=== PATIENT | male | born 1970 | race Caucasian/White ===

== ENCOUNTER 2020-03-29 10:34 | Observation (INO) | payer OTHER ==
[2020-03-29] MEDS ORDERED: MORPHINE SULFATE 4 MG/ML SYRINGE IVP STA (10:53)
[2020-03-29] MEDS ORDERED: SODIUM CHLORIDE 0.9% 1,000 ML IV ONE (11:02)
[2020-03-29 11:50] LABS: Basophils % (A) 0 %; Eosinophils # (A) 0.5 k/uL (0-0.7); Eosinophils % (A) 4 %; HCT 42.3 % (39.0-53.0); HGB 13.7 gm/dL (13.0-17.5); Lymphocytes # (A) 1.8 k/uL (1.0-4.8); Lymphocytes % (A) 13 %; MCHC 32.4 g/dL (31.0-37.0); MCV 86.5 fL (80.0-100.0); Mean Platelet Volume 7.9; Monocytes # (A) 0.8 k/uL (0-1.0); Monocytes % (A) 6 %; Neutrophils # (A) 10.1 k/uL (1.3-7.7); Neutrophils % (A) 76 %; Platelet Count 289 k/uL (150-450); RBC 4.89 m/uL (4.30-5.90); RDW 12.8 % (11.5-15.5); WBC 13.4 k/uL (3.8-10.6)
[2020-03-29] MEDS: SODIUM CHLORIDE 0.9% 1,000 ML IV SCH ×2 (11:54→23:19)
--- NOTE | 2020-03-29 11:59 | ED ---
Extremity Problem HPI - General Chief complaint: Extremity Problem,Nontraumatic Stated complaint: Back pain Time Seen by Provider: 03/29/20 10:46 Source: patient, RN notes reviewed, old records reviewed Mode of arrival: ambulatory Limitations: no limitations - History of Present Illness Initial comments: Patient is a 49-year-old male who presents the ER today from Dr. Mercado since his back specialist office for requesting a CT and MRI. Patient has had lumbar radiculopathy symptoms of sciatic distribution of pain. Patient complains of numbness to the dorsal aspect of his left foot. Patient reports that he's had no specific fall or trauma but does heavy lifting. He isn't having the symptoms for the past 2 days. - Related Data Allergies Allergy/AdvReac Type Severity Reaction Status Date / Time No Known Allergies Allergy Verified 03/29/20 10:39 Review of Systems ROS Statement: Those systems with pertinent positive or pertinent negative responses have been documented in the HPI. ROS Other: All systems not noted in ROS Statement are negative. Past Medical History Past Medical History: No Reported History Past Surgical History: Orthopedic Surgery Additional Past Surgical History / Comment(s): head sx. left knee Smoking Status: Former smoker Past Alcohol Use History: Rare Past Drug Use History: None Reported General Exam - General Exam Comments Initial Comments: 49-year-old male. Limitations: no limitations General appearance: alert, in no apparent distress Head exam: Present: atraumatic, normocephalic, normal inspection Eye exam: Present: normal appearance, PERRL, EOMI. Absent: scleral icterus, conjunctival injection, periorbital swelling ENT exam: Present: normal exam, mucous membranes moist Neck exam: Present: normal inspection. Absent: tenderness, meningismus, lymphadenopathy Respiratory exam: Present: normal lung sounds bilaterally. Absent: respiratory distress, wheezes, rales, rhonchi, stridor Cardiovascular Exam: Present: regular rate, normal rhythm, normal heart sounds. Absent: systolic murmur, diastolic murmur, rubs, gallop, clicks GI/Abdominal exam: Present: soft, normal bowel sounds. Absent: distended, tenderness, guarding, rebound, rigid Back exam: Present: normal inspection Neurological exam: Present: alert, oriented X3, CN II-XII intact Psychiatric exam: Present: normal affect, normal mood Skin exam: Present: warm, dry, intact, normal color. Absent: rash Course Vital Signs 03/29/20 10:40 Temperature 98.5 F Pulse Rate 99 Respiratory 16 Rate Blood Pressure 151/93 O2 Sat by Pulse 97 Oximetry Medical Decision Making - Medical Decision Making 49-year-old male presents with 2 weeks of lower back pain. With radicular symptoms on the left leg. He complains of diminished sensation left foot. He also mentioned that he had an episode of brief or bowel incontinence and mentioned this to his back surgeon. He is sent to the ER for evaluation. Able to obtain an MRI which shows some thecal sac compression of L5-S1 with some examination patient's radiculopathy symptoms. With a concern for an episode of bowel incontinence Patient case was discussed with Dr. Small and he wants to have a postvoid residual measured by cath. The plans to do surgery tomorrow. Patient will have consult to medicine for surgery clearance. Basic labs and EKG obtained. - Lab Data Result diagrams: 03/29/20 11:05 03/29/20 11:05 Lab Results 03/29/20 03/29/20 03/29/20 Range/Units 11:05 11:05 11:05 WBC 13.4 H (3.8-10.6) k/uL RBC 4.89 (4.30-5.90) m/uL Hgb 13.7 (13.0-17.5) gm/dL Hct 42.3 (39.0-53.0) % MCV 86.5 (80.0-100.0) fL MCH 28.0 (25.0-35.0) pg MCHC 32.4 (31.0-37.0) g/dL RDW 12.8 (11.5-15.5) % Plt Count 289 (150-450) k/uL Neutrophils % 76 % Lymphocytes % 13 % Monocytes % 6 % Eosinophils % 4 % Basophils % 0 % Neutrophils # 10.1 H (1.3-7.7) k/uL Lymphocytes # 1.8 (1.0-4.8) k/uL Monocytes # 0.8 (0-1.0) k/uL Eosinophils # 0.5 (0-0.7) k/uL Basophils # 0.0 (0-0.2) k/uL PT 9.7 (9.0-12.0) sec INR 0.9 (<1.2) APTT 23.1 (22.0-30.0) sec Sodium 136 L (137-145) mmol/L Potassium 4.3 (3.5-5.1) mmol/L Chloride 105 (98-107) mmol/L Carbon Dioxide 24 (22-30) mmol/L Anion Gap 7 mmol/L BUN 21 H (9-20) mg/dL Creatinine 1.31 H (0.66-1.25) mg/dL Est GFR (CKD-EPI)AfAm 75 (>60 ml/min/1.73 sqM) Est GFR (CKD-EPI)NonAf 65 (>60 ml/min/1.73 sqM) Glucose 195 H (74-99) mg/dL Calcium 9.0 (8.4-10.2) mg/dL Urine Color Urine Appearance (Clear) Urine pH (5.0-8.0) Ur Specific [place] (1.001-1.035) Urine Protein (Negative) Urine Glucose (UA) (Negative) Urine Ketones (Negative) Urine Blood (Negative) Urine Nitrite (Negative) Urine Bilirubin (Negative) Urine Urobilinogen (<2.0) mg/dL Ur Leukocyte Esterase (Negative) 03/29/20 Range/Units 11:55 WBC (3.8-10.6) k/uL RBC (4.30-5.90) m/uL Hgb (13.0-17.5) gm/dL Hct (39.0-53.0) % MCV (80.0-100.0) fL MCH (25.0-35.0) pg MCHC (31.0-37.0) g/dL RDW (11.5-15.5) % Plt Count (150-450) k/uL Neutrophils % % Lymphocytes % % Monocytes % % Eosinophils % % Basophils % % Neutrophils # (1.3-7.7) k/uL Lymphocytes # (1.0-4.8) k/uL Monocytes # (0-1.0) k/uL Eosinophils # (0-0.7) k/uL Basophils # (0-0.2) k/uL PT (9.0-12.0) sec INR (<1.2) APTT (22.0-30.0) sec Sodium (137-145) mmol/L Potassium (3.5-5.1) mmol/L Chloride (98-107) mmol/L Carbon Dioxide (22-30) mmol/L Anion Gap mmol/L BUN (9-20) mg/dL Creatinine (0.66-1.25) mg/dL Est GFR (CKD-EPI)AfAm (>60 ml/min/1.73 sqM) Est GFR (CKD-EPI)NonAf (>60 ml/min/1.73 sqM) Glucose (74-99) mg/dL Calcium (8.4-10.2) mg/dL Urine Color Yellow Urine Appearance Clear (Clear) Urine pH 5.5 (5.0-8.0) Ur Specific [place] 1.027 (1.001-1.035) Urine Protein Trace H (Negative) Urine Glucose (UA) Trace H (Negative) Urine Ketones Negative (Negative) Urine Blood Negative (Negative) Urine Nitrite Negative (Negative) Urine Bilirubin Negative (Negative) Urine Urobilinogen <2.0 (<2.0) mg/dL Ur Leukocyte Esterase Negative (Negative) - Radiology Data Radiology results: report reviewed Severe right foraminal narrowing at L5-S1. Large left paracentral disc herniation with moderate anterior thecal sac impression left L5 nerve root compression. Correlate with radicular symptoms. Mild central disc herniation L3-L4 and L5-S1 with mild anterior thecal sac contacts. CT shows right [place] inal narrowing at L5-S1. Paracentral disc herniation with moderate to thecal sac compression of L5. Broad based disc bulge at L3-L4. Please see MRI Report on the same day. Disposition Clinical Impression: Lumbar radiculopathy, Intractable back pain Disposition: ADMITTED IP TO THIS HOSP Condition: Good Is patient prescribed a controlled substance at d/c from ED?: No Referrals: Molly Dupont MD [Primary Care Provider] - 1-2 days Time of Disposition: 14:27
[2020-03-29 12:01] LABS: INR 0.9 (<1.2); Partial Thromboplastin Time 23.1 sec (22.0-30.0); Prothrombin Time 9.7 sec (9.0-12.0)
[2020-03-29 12:19] LABS: Potassium 4.3 mmol/L (3.5-5.1)
[2020-03-29 12:27] LABS: Appearance,Urine Clear (Clear); Bilirubin,Urine Negative (Negative); Blood,Urine Negative (Negative); Color,Urine Yellow; Glucose,Urine (UA) Trace (Negative); Ketones,Urine Negative (Negative); Leukocyte Esterase,Urine Negative (Negative); Nitrite,Urine Negative (Negative); PH, Urine 5.5 (5.0-8.0); Protein,Urine Trace (Negative); Specific Gravity,Urine 1.027 (1.001-1.035); Urobilinogen,Urine <2.0 mg/dL (<2.0)
--- NOTE | 2020-03-29 13:30 | MR ---
EXAMINATION TYPE: MR lumbar spine wo con DATE OF EXAM: 03/29/2020 COMPARISON: CT lumbar spine 03/29/2020 HISTORY: Radiculopathy, back pain radiating down right leg CONTRAST: 0 mL intravenous Gadavist. TECHNIQUE: Multiplanar, multisequence images of the lumbar spine were acquired. FINDINGS: L5-S1: Central disc protrusion is present with mild anterior thecal sac compression. No exiting nerve root contact or displacement is evident. Severe right foraminal stenosis is present. L4-L5: There is a large left paracentral disc herniation. There is moderate anterior thecal sac compr ession. Posterior left L5 nerve root displacement and compression is evident. Correlate with the radi cular symptoms. L3-L4: Mild broad-based disc bulge is present with anterior thecal sac contact. No spinal canal steno sis or neural foraminal stenosis is present. L2-L3: No significant disc bulge or disc herniation. No spinal canal stenosis. No foraminal stenosi s. . L1-L2: No significant disc bulge or disc herniation. No spinal canal stenosis. No foraminal stenosi s. . T12-L1: No significant disc bulge or disc herniation. No spinal canal stenosis. No foraminal stenos is. . IMPRESSION: 1. Severe right foraminal narrowing L5-S1. 2. Large left paracentral disc herniation with moderate anterior thecal sac compression and left L5 n erve root compression. Correlate with the radicular symptoms. 3. Mild central disc bulging L3-4 and L5-S1 with mild anterior thecal sac contact.
--- NOTE | 2020-03-29 13:35 | CT ---
EXAMINATION TYPE: CT lumbar spine wo con DATE OF EXAM: 03/29/2020 COMPARISON: HISTORY: Back pain, radiculopathy CT DLP: 2343.6 mGycm CONTRAST: None TECHNIQUE: CT of the lumbar spine is performed on a spiral scan at 3 mm thick sections . Reconstructed images are performed in the coronal and sagittal planes. FINDINGS: T12-L1: No focal disc herniation or significant disc bulge is evident. No spinal canal stenosis or neural foraminal stenosis is present. L1-L2: No focal disc herniation or significant disc bulge is evident. No spinal canal stenosis or n eural foraminal stenosis is present L2-L3: No focal disc herniation or significant disc bulge is evident. No spinal canal stenosis or n eural foraminal stenosis is present L3-L4: Broad-based disc bulge is present. This has moderate anterior thecal sac compression. No AP sp inal canal stenosis is present. On these images and may be slightly greater to the right than the lef t. L4-L5: Left paracentral disc herniation with moderate anterior thecal sac compression. Correlate with left L5 radicular symptoms. L5-S1: Asymmetric disc bulging into the right foramen is present. No suspicious AP spinal canal steno sis present. Vertebral alignment appears normal. IMPRESSION: 1. Right foraminal narrowing L5-S1. 2. Left paracentral disc herniation with moderate anterior thecal sac compression L4-5. 3. Broad-based disc bulge L3-4. 4. Please also see MRI lumbar spine report same date
[2020-03-29] MEDS ORDERED: HYDROmorphone 1 MG/ML 1 ML SYRINGE IVP STA (14:26)
[2020-03-29] MEDS ORDERED: HYDROmorphone 1 MG/ML 1 ML SYRINGE IVP PRN (14:28)
[2020-03-29] MEDS ORDERED: NALOXONE 0.4 MG/ML 1 ML VIAL IV PRN (14:28)
[2020-03-29] MEDS ORDERED: ACETAMINOPHEN TAB 325 MG TAB PO PRN (14:28)
[2020-03-29] MEDS ORDERED: IBUPROFEN 400 MG TAB PO PRN (14:28)
[2020-03-29] MEDS ORDERED: ONDANSETRON 4 MG/2 ML VIAL IVP PRN (14:28)
--- NOTE | 2020-03-29 15:49 | P.HPOR ---
History of Present Illness H&P Date: 03/29/20 Chief Complaint: My LLE hurts, my back hurts and I had an issues with my bowels This 49 year old male presents with 1 1/2 weeks of low back pain. He notes pain on his left side that radiates down his left leg. He has weakness and night time symptoms. Patient has increased pain with weight bearing. He also has had 1 instance bowel incontinence. Patient takes [place] which she was prescribed from the emergency department dominant [facility]. The patient is visiting [facility] 2 different times for his low back pain and was referred here for evaluation. He has had no imaging as of yet of his low back. He states continued pain and radicular type symptoms on his left lower extremity. He states when he increases intra-abdominal pressure. He gets more weakness and numbness in his legs as well as had a bout of bowel incontinence when he was getting up out of the bathtub. He denies any fevers, chills shortness of breath or chest pain at this time. Does have a history of prediabetes. His sugars. He states from in the 120s. He does have a history of high blood pressure. He currently denies perineal numbness. Review of Systems 14 points review of systems completed and as stated in HPI or otherwise negative. Integumentary: Reports as per HPI Neurological: Reports motor disturbance, Reports paresthesias, Reports sensory deficit Past Medical History Past Medical History: No Reported History, Diabetes Mellitus, Hypertension Additional Past Medical History / Comment(s): Anxiety, depression Past Surgical History: Orthopedic Surgery Additional Past Surgical History / Comment(s): head sx. left knee Past Psychological History: Anxiety, Depression Smoking Status: Former smoker (States he only smokes when He drinks) Past Alcohol Use History: Occasional, Rare Past Drug Use History: None Reported Medications and Allergies Home Medications Medication Instructions Recorded Confirmed Type Cyclobenzaprine [Flexeril] 5 mg PO BID PRN 03/29/20 03/29/20 History Ibuprofen [Motrin] 800 mg PO TID PRN 03/29/20 03/29/20 History hydroCHLOROthiazide [Hydrodiuril] 50 mg PO DAILY 03/29/20 03/29/20 History lisinopriL 40 mg PO DAILY 03/29/20 03/29/20 History Allergies Allergy/AdvReac Type Severity Reaction Status Date / Time No Known Allergies Allergy Verified 03/29/20 15:19 Physical Examination Osteopathic Statement: *. No significant issues noted on an osteopathic structural exam other than those noted in the History and Physical/Consult. General: DEL Awake, alert, appropriate for age, in no acute distress. HEENT: DEL No unusual neck masses around region of lateral neck triangle, thyroid, supraclavicular groove Heart: DEL Regular rate and rhythm, normal S1, S2 and no murmur/gallop. Lungs: DEL Clear to auscultation bilaterally with no use of accessory muscles. Extremities: DELSkin warm and dry without acute lesions, coloration, temperature, skin intact, no tenderness or erythema * Integument: Hairy patches: DELAbsent PRESENT Dorsal skin dimples: DELAbsent PRESENT Cafe au lait spots: DELAbsent PRESENT Surgical incisions: DEL * none Palpation: Please see Pain drawing on Intake sheet for further detail. Midline spinal tenderness: DEL yes no cervical thoracic lumbar sacral coccygeal E6 Paralumbar tenderness: DEL yes no R L R>L left > right bilateral E6 Parathoracic tenderness: DEL yes No R L R>L L>R bilateral E6 Buttocks tenderness: DEL yes No R L R>L L>R bilateral E6 Special findings: * none POSTURAL and MUSCULO-SKELETAL EVALUATION: Coronal Balance: DELNeutral * Recumbent testing: DEL Patient is unable to lay flat on back secondary to pain Sagittal Balance: DELNeutral * Shoulder Profile: DELlevel Pelvic Girdle: level Neck ROM: DEL Unrestricted * Lumbar ROM: DEL Unrestricted * Shoulder ROM: DEL Symmetric in abduction, ER/IR * Hip ROM: DEL Symmetric in abduction, adduction, ER/IR * Knee ROM: DEL Symmetric and intact in Flexion / extension * Hands: DELnormal Feet: DELnormal VASCULAR STATUS : RIGHT LEFT Wrist Pulses intact * intact * Pedal Pulses (Dors. pedis & post.tibialis) intact * intact * Color normal * normal * Edema Absent PRESENT Absent PRESENT NEUROLOGIC EXAMINATION: Mental Status: Awake and alert, fully oriented, with normal attention, concentration and memory, and fluent, appropriate speech. Cranial Nerves: I: Olfactory not tested. II: Visual acuity normal, no visual field deficit noted with confrontation. III,IV: Normal pupillary reflexes & intact extraocular movements without nystagmus. V,: Intact symmetrical facial sensation. VII: Intact symmetrical facial motor movement VIII: Hearing intact. IX,X: swallow, & normal voice. XI: Sternocleidomastoid, trapezius function intact. XII: Tongue midline with normal movements. L'hermitte's Sign:Negative / absent Spurling'Sign: Absent bilaterally. Cubital percussion test: Absent bilaterally. Ok-Tinel sign - Carpal region: Absent bilaterally. Straight Leg Raising: positive on the left Crossed straight leg raise:negative MOTOR EXAM (0-5/5, N/T) STRENGTH RIGHT LEFT Shoulder Abd (not part of the TUCKER score) 5 5 Elbow Flexors 5 5 Elbow Extensor 5 5 Wrist Dorsiflexors 5 5 Finger Abductor 5 5 Antique Clock Repairer 5 5 Hip Flexor (Not part of TUCKER Motor score) 5 5 Knee Flexor 5 5 Knee Extensor 5 5 Ankle dorsiflexor 5 4+ * Ankle plantarflexion 5 4+ * Extensor hallucis 5 5 *Limited secondary to pain, patient did not want to stand from wheelchair. REFLEXES(0-4/2, NT) RIGHT LEFT Upper Extremities 2 2 Lower Extremities 1 1 Pathological Reflexes RIGHT LEFT Ambrose's Absent Absent Clonus ABSENT # of beats:2 ABSENT # of beats: 2 # Indicates mechanical impairment Muscle appearance: symmetrical, normal tone, no fasciculations Rectal Tone: patient declines currently. He states no genital numbness at this time. Recommended this be done, he refuses at this time. States he thinks it is fine. Sensory system (0-4, N/T) Test type RU KELI RL LL Joint-Position *2 *2 *2 *2 Vibration *2 *2 *2 *2 Pain & LT sense *2 *2 *2 *2 Dermatomal Deficit: * none *none *none *S1 and L5 Gait and Functional Evaluation: Ambulatory aids: Wheelchair, states it hurts to ambulate at this time Romberg's test: Intact bilaterally Toe heel walk / heel-toe walk intact while maintaining satisfactory balance? No Squatting/straightening w/o assistance to a min of 60 degree knee flexion? No Single leg stance: unable to evaluate Hand and finger dexterity intact bilaterally? yes Disdiadochokinesis examination negative bilaterally? yes Results Computed tomography scan of the lumbar spine fails to demonstrate any acute fractures or dislocations. MRI of the lumbar spine is reviewed. There is a large paracentral disc herniation which has extruded from the L4 5 region and migrated caudally on the left-hand side, encroaching on the left L5 nerve root. This does cause thecal sac encroachment as well, which is moderate to severe. There is also a right foraminal disc herniation of L5-S1, which impinges on the right L5 exiting nerve root. There is moderate central stenosis of L5-S1. There are no fractures or dislocations noted. - Labs Labs: Abnormal Lab Results - Last 24 Hours (Table) 03/29/20 03/29/20 03/29/20 Range/Units 11:05 11:05 11:55 WBC 13.4 H (3.8-10.6) k/uL Neutrophils # 10.1 H (1.3-7.7) k/uL Sodium 136 L (137-145) mmol/L BUN 21 H (9-20) mg/dL Creatinine 1.31 H (0.66-1.25) mg/dL Glucose 195 H (74-99) mg/dL Urine Protein Trace H (Negative) Urine Glucose (UA) Trace H (Negative) H & H 03/29/20 Range/Units 11:05 Hgb 13.7 (13.0-17.5) gm/dL Hct 42.3 (39.0-53.0) % Coagulation 03/29/20 Range/Units 11:05 INR 0.9 (<1.2) Result Diagrams: 03/29/20 11:05 03/29/20 11:05 Assessment and Plan Assessment: 1. L4-5 extruded disc herniation with left lower extremity radiculopathy, uncontrolled pain, impending cauda equina with one incidence of bowel disruption 2. L5-S1 right foraminal disc herniation 3. Hypertension 4. Diabetes 5. Obesity Plan: Alfred Hammond is a 49 yo male presenting for evaluation of sudden onset of bilateral Lower extremity weakness, numbness, and a loss of sensation with one instance of accidental bowel release. It was my pleasure to have seen and examined Alfred Hammond. In our visit today we have had a chance to go over subjective complaints, physical examination findings and treatments including the natural course history without intervention and various interventional options. His/her imaging demonstrates Lare extruded disc herniation L4-5 on the left as well as right L5-S1 foraminal disc herniation. On physical exam, Alfred Hammond demonstrates Decreased sensation in the L4-5 and L5-S1 dermatomes on the L as well as weakness in his LLE, inability to ambulate due to pain as well. I explained to the patient that as her condition progresses it will cause further neurological deficits. Based on the patients imaging, physical exam, and the rapid progression and disabling nature of her symptoms, at this time I recommend surgery in the form or a: L4-5 and L5-S1 midline sparing bilateral laminoforaminotomy. I discussed the risk and benefits of this procedure at length with Alfred Hammond. The patient and her agreed to considered pursuing the procedure abovementioned. Prior to surgery, he will be seen by medicine and evaluated and cleared for potential surgery tomorrow 03/30/20. Questions were invited and answered, and the patient wishes to proceed as outlined below. Currently, I am recommendin. Lumbar 4 to Lumbar 5 and Lumbar 5 to Sacral 1 bilateral laminoforaminotomy and decompression with discectomy 2. Medicine for surgical clearance and management of DM and HTN 3. Review of surgical risks and benefits as well as an educational packet on the proposed surgical procedure. Risks: All surgical procedures come with inherent risks, including those related to positioning, anesthesia, intraoperative findings, and postoperative complications. It is important to understand that surgery does not come with any guarantee of a successful outcome as complications and adverse events are always possible. The patient was given a handout in office today discussing the surgical procedure and risks associated with the intervention, both of which were d iscussed with the patient. These risks include but are not limited to the following: - Experiencing same, different or even worse symptoms in back, neck, arms, or legs compared to before surgery. - Requiring further surgery or other forms of treatment presently or at some time in the future at same or other levels of the intended spine surgery. - On an extreme but fortunately relatively rare basis severe complication such as blindness, stroke, heart attack, temporary and/or permanent nerve injury, paralysis, coma, or may occur, sometimes without known explanation. - Surgical complications may include but are not limited to risk of infection, fluid accumulation in the surgical dissection site, including a seroma or hematoma, that requires additional surgery, wound drainage, bleeding, new numbness or weakness, vision changes/loss, spinal fluid leakage, non-healing and/or infected incision, headaches, difficulty or inability to swallow, hoarseness, hemopneumothorax, pneumothorax, impotence, retrograde ejaculation, vaginal dryness; injury to nerves, spinal cord, blood vessels, lymphatics or other vital organs (i.e., bowel injury, injury to the great vessels); heterotopic bone formation; complications related to the hardware such as screws, rods, cages including misplaced hardware, device failure, instrumentation at the wrong spine level, hardware fracture/breakage, or hardware loosening; vertebral failure of the spinal column above or below the newly placed hardware; retained surgical instrumentations or devices and the need for further surgery. - Medical risks of the planned spine surgery include but are not limited to generalized Infections to the whole body or local areas outside of the surgical site (sepsis), heart attack, bleeding, anaphylaxis, meningitis, seizure, epilepsy, hearing loss, burn english, laceration of the head or other areas of the body, bruising, hypersensitivity of the skin, bladder over distension; allergic reaction; shoulder injury related to positioning; fat, blood and air clots to other areas of the body like heart, lungs, brain; failure of internal organs such as lungs, kidneys, liver and excessive bleeding. If blood transfusions are necessary, note that transfusions may cause intolerance reactions such as anaphylaxis or other complex reactions. Despite best efforts, the results of spine surgery might not heal in terms of bone, soft tissues such as skin, fascia, ligaments, and joints. Additionally, in order to achieve best possible results, spine surgery may be carried out beyond the initially planned levels and involve decompression, fusion including insertion of hardware at levels other than the original intended area of surgical interest change some portions of the procedure in order to ensure the best possible outcomes. With spine surgery and spinal fusion, there are different off label uses of instrumentation (devices, implants and hardware) as well as biological substances (bone morphogenic proteins, demineralized bone matrix) as well as using extra bone from allograft sources (i.e. cadaver bone) or autograft (iliac crest bone, ribs, or the spine itself). The patient has been given information about these practices and their inherent risks and benefits. The patient has had a chance to review all the listed information, has been given print outs detailing this information, and has had all his/her questions answered to their satisfaction. It was my pleasure to have seen and examined Alfred Hammond. In our visit today we have had a chance to go over my understanding of our patient's current condition, the natural course history without intervention and various interventional options. Questions were invited and answered, and the patient wishes to proceed as outlined above. I have seen and examined the patient for 25 minutes and we have spent more than 50% of the time in repeat and detailed counseling about the patient's condition, its natural course history with out and as much as can be predicted with surgery and re-review of various surgical treatment options. In conclusion, Alfred Hamomnd and his who was present with him in the office today requested we proceed with the above suggested surgery and are willing to accept risks and limitations of the suggested surgery as nature of the disease process and our best attempts at treatment for the condition. Thank you again for allowing us to be part of your patient's care. Please don't hesitate to contact me if you have any further questions. Signed and authenticated by: Sundeep Trujillo [facility] [address] [place] [id number] It was a pleasure to seen and examined Mr. CAROL DOUGLASS in the office as well as the hospital. Due to his continued uncontrolled pain, multiple ER visits, difficulty and essentially nonambulatory state coupled with left lower extremity weakness and one instance of accidental bowel release. I do feel he meets criteria for inpatient care. MRI is significant for a large extruded disc fragment from L4 to L5 on the left-hand side, which would explain his left lower extremity weakness and radiculopathy. He also has a right L5 to S1 foraminal disc herniation. The L4 5 region is causing moderate to severe central and foraminal stenosis in this area, and due to his symptoms is likely impending cauda. Time with Patient: Greater than 30
[2020-03-29] MEDS ORDERED: hydrALAZINE HCL 20 MG/ML 1 ML VIAL IVP STA (16:12)
[2020-03-29] MEDS: carvediloL 12.5 MG TAB PO SCH (16:39)
--- NOTE | 2020-03-29 18:20 | XR ---
EXAMINATION TYPE: XR chest 2V DATE OF EXAM: 03/29/2020 COMPARISON: 06/14/2009 INDICATION: Presurgical clearance TECHNIQUE: Frontal and lateral views of the chest are obtained. FINDINGS: The heart size is normal. The pulmonary vasculature is normal. There is some mild increased lung markings in the right lower lobe. Correlate for subsegmental atelec tasis. Some minimal platelike atelectasis may be at the left base.. IMPRESSION: 1. Mild bibasilar infiltrates. Correlate for atelectasis.
[2020-03-29] MEDS ORDERED: cloNIDine HCL 0.1 MG TAB PO STA (18:45)
[2020-03-29] MEDS ORDERED: LORazepam 2 MG/ML INJ IV STA (18:45)
--- NOTE | 2020-03-29 18:48 | P.CONS ---
History of Present Illness - Reason for Consult Consult date: 03/29/20 Requesting physician: Sundeep Forman - Chief Complaint Back pain - History of Present Illness 49-year-old male with PMH of prediabetes and hypertension initially presented to orthopedic clinic for CT and MRI. He had chronic lower back pain with radiculopathy and numbness in his right foot. MRI of the lumbar spine shows severe right foraminal narrowing L5-S1 and large left paracentral disc herniation with moderate anterior thecal sac compression and left L5 nerve root compression. There is plans for laminoforaminotomy and decompression with discectomy. [facility] physicians has been consulted for medical management of this patient. Patient initially had pain of 9 out of 10 severity lower back pain when he arrived to the floor. He received some Dilaudid and now his pain is 5 out of 10 in severity. He complains of radiation of his back pain and his hamstrings bilaterally and ankle on the left side. Patient states that he does not like the feeling with Dilaudid and would like another pain medication. He denies any headache, lower extremity edema, nausea or vomiting, fever or chills, cough, chest pain, shortness of breath, palpitations, changes in urination or bowel habits. No changes in appetite or weight. His blood pressure has been elevated to 194/129. CBC shows leukocytosis of 13.4. CMP shows sodium 136, B1 of 21, creatinine 1.31, glucose 195. Review of Systems Pertinent positives and negatives as discussed in HPI, a complete review of systems was performed and all other systems are negative. Past Medical History Past Medical History: No Reported History, Diabetes Mellitus, Hypertension Additional Past Medical History / Comment(s): Anxiety, depression History of Any Multi-Drug Resistant Organisms: None Reported Past Surgical History: Orthopedic Surgery Additional Past Surgical History / Comment(s): head sx. left knee Past Psychological History: Anxiety, Depression Smoking Status: Former smoker (States he only smokes when He drinks) Past Alcohol Use History: Occasional, Rare Past Drug Use History: None Reported Medications and Allergies Home Medications Medication Instructions Recorded Confirmed Type Cyclobenzaprine [Flexeril] 5 mg PO BID PRN 03/29/20 03/29/20 History Ibuprofen [Motrin] 800 mg PO TID PRN 03/29/20 03/29/20 History hydroCHLOROthiazide [Hydrodiuril] 50 mg PO DAILY 03/29/20 03/29/20 History lisinopriL 40 mg PO DAILY 03/29/20 03/29/20 History Allergies Allergy/AdvReac Type Severity Reaction Status Date / Time No Known Allergies Allergy Verified 03/29/20 15:19 Physical Exam Vitals: Vital Signs Temp Pulse Pulse Pulse Resp BP BP 03/29/20 17:58 99.5 F 99 179/118 03/29/20 16:11 98.3 F 96 18 194/129 03/29/20 15:07 98 17 174/100 03/29/20 10:40 98.5 F 99 16 151/93 BP Pulse Ox 03/29/20 17:58 183/116 03/29/20 16:11 92 L 03/29/20 15:07 98 03/29/20 10:40 97 Intake and Output 03/29/20 03/29/20 03/29/20 06:59 14:59 22:59 Other: Weight 120.202 kg 120.202 kg General: [non toxic], [moderate distress], [appears at stated age] Derm: [warm], [dry] Head: [atraumatic], [normocephalic], [symmetric] Eyes: [EOMI], [no lid lag], [anicteric sclera] Mouth: [no lip lesion], [mucus membranes moist] Cardiovascular: [S1S2 reg], [tachycardic], [positive DP pulse bilateral], Lungs: [CTA bilateral], [no rhonchi, no rales] , [no accessory muscle use] Abdominal: [soft], [ nontender to palpation], [no guarding], [no appreciable organomegaly] Ext: [no gross muscle atrophy], [no edema], [no contractures] Neuro: [ CN II-XI grossly intact], [no focal neuro deficits] Psych: [Alert], [oriented], [appropriate affect] Results CBC & Chem 7: 03/29/20 11:05 03/29/20 11:05 Labs: Abnormal Lab Results - Last 24 Hours (Table) 03/29/20 03/29/20 03/29/20 Range/Units 11:05 11:05 11:55 WBC 13.4 H (3.8-10.6) k/uL Neutrophils # 10.1 H (1.3-7.7) k/uL Sodium 136 L (137-145) mmol/L BUN 21 H (9-20) mg/dL Creatinine 1.31 H (0.66-1.25) mg/dL Glucose 195 H (74-99) mg/dL Urine Protein Trace H (Negative) Urine Glucose (UA) Trace H (Negative) Assessment and Plan Assessment: Hypertensive urgency Leukocytosis Acute kidney injury Diabetes mellitus with hyperglycemia Patient presents with blood pressure as high as 194/129. He does have a history of hypertension for which he takes lisinopril and hydrochlorothiazide. Plans: He will be given 10 mg of hydralazine IV stat. Clonidine 0.1 mg ordered now. He will be started on Coreg 12.5 mg by mouth twice a day. Hydrochlorothiazide and lisinopril will be restarted. I suspect his uncontrolled blood pressure is also related to inadequate pain control. Patient has a leukocytosis of 13.4. This is likely reactive. No signs of infection. Plans: Continue to monitor. Repeat CBC tomorrow morning. Creatinine 1.31. Plans: Start normal saline at 100 mL/h. Avoid nephrotoxins. Repeat BMP tomorrow morning. Gcang-[id number] glucose 195. Plans: Insulin sliding scale. Regular Accu-Cheks. Hypoglycemic precautions. DVT prophylaxis: [SCD] Discussed with: [Patient and , nursing] Anticipated discharge: [2-3 days] Anticipated discharge place: [Home] A total of [45] minutes was spent on the care of this complex patient more than 50% of the time was spent in counseling and care coordination. Patient names his in decision maker if he can't make decisions for himself. Patient has no PCP. He would like to be full code.
[2020-03-29 20:31] LABS: Glucose,Whole Blood 186 mg/dL (75-99)
[2020-03-29] MEDS ORDERED: INSULIN ASPART (NovoLOG) 100 UNIT/ML VIAL SQ SCH (21:00)
[2020-03-29] MEDS: MORPHINE SULFATE 4 MG/ML SYRINGE IVP PRN (21:13)
[2020-03-29] MEDS: INSULIN ASPART (NovoLOG) 100 UNIT/ML VIAL SQ SCH (21:14)
[2020-03-30] MEDS: MORPHINE SULFATE 4 MG/ML SYRINGE IVP PRN ×2 (00:37→07:10)
[2020-03-30] MEDS ORDERED: cloNIDine HCL 0.2 MG TAB PO STA ×2 (00:44→15:45)
[2020-03-30] MEDS ORDERED: LORazepam 1 MG TAB PO STA (00:44)
[2020-03-30] MEDS ORDERED: MELATONIN 3 MG TABLET PO SCH (00:45)
[2020-03-30] MEDS: carvediloL 12.5 MG TAB PO SCH (07:10)
[2020-03-30 07:11] LABS: Glucose,Whole Blood 140 mg/dL (75-99)
[2020-03-30] MEDS: KETOROLAC 15 MG/ML 1 ML VIAL IVP PRN ×2 (07:23→13:34)
--- NOTE | 2020-03-30 08:03 | P.PN ---
Subjective Progress Note Date: 03/30/20 Principal diagnosis: HNP L4-5 and L5-S1 with LLE weakness and radiculopathy Pt was s/e this AM. He is extremely anxious, unable to sit still. He states his pain is controlled but he is very nervous about surgery. I discussed at length with him the procedure again. He states he was up and about last night without many issues and that he has used the bathroom. He has full control of his bowels and bladder at this time and has no genital numbness/tingling or buttock numbness/tingling he states. He states +N/V with BROWN. He denies any CP/SOB/F/C at this time. is in the room with patient at bedside. Pt states he does not want surgery today and wants to try other treatments. I discussed with him the risks of this as well as the potential to try some other treatments such as steroids, but with his diabetes it will spike his surgars and he cannot be on steroids forever. He understood. We will attempt to get his pain under control and treat his symptoms. If he has any emergent symptoms as in any other bowel or bladder incontinence, genital numbness/tingling, progressive weakness or pain that he will need the surgery urgently/emergently. He understood this, but still does not want surgery at this time. Medicine notified. They are working on his BP and his sugars. Objective - Vital Signs Vital signs: Vital Signs Temp 97.9 F 03/30/20 07:00 Pulse 85 03/30/20 07:00 Resp 17 03/30/20 07:00 BP 156/106 03/30/20 07:00 Pulse Ox 94 L 03/30/20 07:00 Intake & Output 03/29/20 03/30/20 03/30/20 18:59 06:59 18:59 Weight 120.202 kg Other: # Voids 1 - Exam 5/5 HF, KF/KE b/l 4+/5 DF/PF on LLE 5/5 DF/PF on RLE SILT L2-S2 with intact rectal and buttock and scrotal sensation to light touch NEgative babinski b/l No clonus +distal pulses palpable Pt ambulating in room with some pain but stands without issues. - Neurologic Neurologic: Present: CNII-XII intact - Musculoskeletal Musculoskeletal: Present: gait normal, left sided weakness - Psychiatric Psychiatric: Present: A&O x's 3, intact judgment & insight - Allied health notes Allied health notes reviewed: PT - Labs CBC & Chem 7: 03/29/20 11:05 03/29/20 11:05 Labs: Abnormal Lab Results - Last 24 Hours (Table) 03/29/20 03/29/20 03/29/20 Range/Units 11:05 11:05 11:55 WBC 13.4 H (3.8-10.6) k/uL Neutrophils # 10.1 H (1.3-7.7) k/uL Sodium 136 L (137-145) mmol/L BUN 21 H (9-20) mg/dL Creatinine 1.31 H (0.66-1.25) mg/dL Glucose 195 H (74-99) mg/dL POC Glucose (mg/dL) (75-99) mg/dL Urine Protein Trace H (Negative) Urine Glucose (UA) Trace H (Negative) 03/29/20 03/30/20 Range/Units 20:28 07:09 WBC (3.8-10.6) k/uL Neutrophils # (1.3-7.7) k/uL Sodium (137-145) mmol/L BUN (9-20) mg/dL Creatinine (0.66-1.25) mg/dL Glucose (74-99) mg/dL POC Glucose (mg/dL) 186 H 140 H (75-99) mg/dL Urine Protein (Negative) Urine Glucose (UA) (Negative) Assessment and Plan Assessment: 49 yo male 1. L4-5 extruded disc herniation with left lower extremity radiculopathy, weakness and one instance of bowel incontinence last week. Doing better today. No further incontinence or emergent symptoms. 2. L5-S1 right foraminal disc herniation 3. Hypertension 4. Diabetes 5. Obesity 6. Anxiety Plan: Pt does not want surgery at this time. He was originally on board, but this AM is extremely anxious, BP in 200s systolic and vomiting. He states his back feels better and his LLE just has pain going down to his foot. He states he thinks it is stronger. I discussed the risks of no surgery and conservative measures with surgery. He understood. His was at bedside with him and heard our conversation. He still states that he does not want surgery at this time. He wants to try more conservative measures to see if he can get better with these. 1. Decadron 4 mg every 6 hours 2. Discontinue IV pain medications 3. Physical therapy consult 4. Appreciate medical management and glucose control 5. We will see how the patient does with this. If he does well, we will send him home with steroids, physical therapy and follow-up. Time with Patient: Greater than 30
[2020-03-30] MEDS ORDERED: methocarbamoL 750 MG TAB PO PRN (08:04)
[2020-03-30] MEDS: DEXAMETHASONE SOD PHOSPHATE 4 MG/ML 1 ML VIAL IV SCH ×3 (08:04→16:53)
[2020-03-30] MEDS: INSULIN ASPART (NovoLOG) 100 UNIT/ML VIAL SQ SCH ×3 (08:04→17:05)
[2020-03-30] MEDS ORDERED: lisinopriL 20 MG TAB PO SCH (09:00)
[2020-03-30] MEDS ORDERED: hydroCHLOROthiazide 25 MG TAB PO SCH (09:00)
[2020-03-30 10:50] LABS: Glucose,Whole Blood 134 mg/dL (75-99)
[2020-03-30] MEDS: SODIUM CHLORIDE 0.9% 1,000 ML IV SCH (11:57)
--- NOTE | 2020-03-30 14:22 | P.DS ---
Providers Date of admission: 03/29/20 15:08 Expected date of discharge: 03/30/20 Attending physician: Kylah Garcia MD Consults: 03/29/20 14:28 Consult Physician Stat Consulting Provider: Kylah Garcia Consult Reason/Comments: Med clearance, preop Do you want consulting provider notified?: Yes Primary care physician: [facility] Course: 49-year-old male with PMH of prediabetes and hypertension initially presented to orthopedic clinic for CT and MRI. He had chronic lower back pain with radiculopathy and numbness in his right foot. MRI of the lumbar spine shows severe right foraminal narrowing L5-S1 and large left paracentral disc herniation with moderate anterior thecal sac compression and left L5 nerve root compression. There is plans for laminoforaminotomy and decompression with discectomy. [facility] physicians was consulted for medical management of this patient. Patient initially had pain of 9 out of 10 severity lower back pain when he a rrived to the floor. He received some Dilaudid and now his pain is 5 out of 10 in severity. He complains of radiation of his back pain and his hamstrings bilaterally and ankle on the left side. He denies any bladder or bowel incontinence, saddle anesthesia. Decision was made by orthopedic surgery to delay surgery due to increased anxiety and blood pressure. He was started on Decadron IV and cleared by orthopedic surgery for discharge on a Medrol Dosepak. His blood pressure has been elevated to 194/129 on admission. His home medications were restarted. He received clonidine by mouth. He received IV push hydralazine. Coreg 12.5 milligrams by mouth twice a day was added. Coreg was increased to 25 mg. His blood pressure improved to 156/106 at the time of this note. He was given Ativan as needed for anxiety. Patient was seen and examined. No acute events overnight. Patient with multiple questions. Requesting new PCP. Requesting diabetic supplies. Requesting CPAP supplies. He denies any bladder or bowel incontinence. He denies any saddle anesthesia. Patient requesting to go home. General: [non toxic], [moderate distress], [appears at stated age] Derm: [warm], [dry] Head: [atraumatic], [normocephalic], [symmetric] Eyes: [EOMI], [no lid lag], [anicteric sclera] Mouth: [no lip lesion], [mucus membranes moist] Cardiovascular: [S1S2 reg], [no murmur], [positive DP pulse bilateral], Lungs: [CTA bilateral], [no rhonchi, no rales] , [no accessory muscle use] Abdominal: [soft], [ nontender to palpation], [no guarding], [no appreciable organomegaly] Ext: [no gross muscle atrophy], [no edema], [no contractures] Neuro: [no focal neuro deficits] Psych: [Alert], [oriented], [appropriate affect] Hypertensive urgency, improved Leukocytosis Acute kidney injury Diabetes mellitus with hyperglycemia Patient presents with blood pressure as high as 194/129, 156/102 29. He does have a history of hypertension for which he takes lisinopril and hydrochlorothiazide. Plans: He will be started on Coreg 25 mg by mouth twice a day. Hydrochlorothiazide and lisinopril will be restarted. I suspect his uncontrolled blood pressure is also related to inadequate pain control and anxiety from being in the hospital. Patient has a leukocytosis of 13.4. This is likely reactive. No signs of infection. Plans: Continue to monitor. Repeat CBC tomorrow morning. Creatinine 1.31. Plans: Start normal saline at 100 mL/h. Avoid nephrotoxins. Repeat BMP tomorrow morning. [id number] glucose 134. Plans: Insulin sliding scale. Regular Accu-Cheks. Hypoglycemic precautions. DVT prophylaxis: [SCD] Discussed with: [Patient and , nursing] Anticipated discharge: [2-3 days] Anticipated discharge place: [Home] A total of [45] minutes was spent on the care of this complex patient more than 50% of the time was spent in counseling and care coordination. Patient names his Iesha decision maker if he can't make decisions for himself. Patient has no PCP. He would like to be full code. Patient cleared by orthopedic surgery for discharge. Needs better blood pressure control. Anticipate DC home today if able to control blood pressure. Follow-up with orthopedic surgery within 1 week of discharge. Advised of warning symptoms 1 to come back to the ED. Patient verbalized understanding of the plan. Pertinent Studies: MRI lumbar spine, CT lumbar spine, chest x-ray Patient Condition at Discharge: Good Plan - Discharge Summary Discharge Rx Participant: No New Discharge Prescriptions: No Action lisinopriL 40 mg PO DAILY hydroCHLOROthiazide [Hydrodiuril] 50 mg PO DAILY Ibuprofen [Motrin] 800 mg PO TID PRN PRN Reason: Pain Cyclobenzaprine [Flexeril] 5 mg PO BID PRN PRN Reason: Muscle Spasm Discharge Medication List Cyclobenzaprine [Flexeril] 5 mg PO BID PRN 03/29/20 [History] Ibuprofen [Motrin] 800 mg PO TID PRN 03/29/20 [History] hydroCHLOROthiazide [Hydrodiuril] 50 mg PO DAILY 03/29/20 [History] lisinopriL 40 mg PO DAILY 03/29/20 [History] Follow up Appointment(s)/Referral(s): Sundeep Forman DO [Doctor of Osteopathic Medicine] - 4 Weeks Molly Dupont MD [Primary Care Provider] - 1-2 days Patient Instructions/Handouts: Lumbar Disc Herniation (DC), Lumbar Disc Herniation (GEN) Discharge Disposition: HOME SELF-CARE
[2020-03-30 14:42] VITALS: BP 152/102; PULSE 94; RESP 19; TEMP 97.6
[2020-03-30 16:42] LABS: Glucose,Whole Blood 386 mg/dL (75-99)
[2020-03-30] MEDS ORDERED: INSULIN ASPART (NovoLOG) 100 UNIT/ML VIAL SQ ONE (16:44)
[2020-03-30 17:23] LABS: Glucose,Whole Blood 326 mg/dL (75-99)
[2020-03-30] MEDS ORDERED: carvediloL 12.5 MG TAB PO SCH (17:30)
[2020-03-30] MEDS ORDERED: INSULIN DETEMIR (LEVEMIR) 100 UNIT/ML SYR SQ STA (17:52)
[2020-03-30 17:53] LABS: Glucose,Whole Blood 323 mg/dL (75-99)
== END 2020-03-30 18:51 | disposition home or self-care (01) ==
LOC: EC 10:34 → 4SSUR 15:08 → INTOOBSV 15:08 → 4SSUR 15:20 → UNDODISIN 03-30 18:51
PROVIDERS: ADMIT Family Medicine; ATTEND Family Medicine
DX: G89.29 Other chronic pain (principal); M51.16 Intervertebral disc disorders with radiculopathy, lumbar region; R15.9 Full incontinence of feces; M48.061 Spinal stenosis, lumbar region without neurogenic claudication; E11.65 Type 2 diabetes mellitus with hyperglycemia; I16.0 Hypertensive urgency; N17.9 Acute kidney failure, unspecified; D72.829 Elevated white blood cell count, unspecified; I10 Essential (primary) hypertension; E66.9 Obesity, unspecified; Z68.39 Body mass index [BMI] 39.0-39.9, adult; F41.9 Anxiety disorder, unspecified; F32.9 Major depressive disorder, single episode, unspecified; Z98.890 Other specified postprocedural states; F17.200 Nicotine dependence, unspecified, uncomplicated; Z79.899 Other long term (current) drug therapy
CPT/HCPCS: 96376 ×2; 96375 ×2; 96361; 96374; 99285; 36415; 80048; 85025; 85610; 85730; 81003; 71046; 72131; 72148; G0378 ×2; J2060; J2270 ×2; J0360; J1100; J2405; J1170; J1885